=== PATIENT | female | born 1945 | race Caucasian/White ===

== ENCOUNTER → 2017-12-29 | Outpatient (CLI) | payer OTHER ==
[~2017-12-29] MED LIST: ASPIRIN81 M2 PO; CENTRUM SILVER1 EAC4 PO; CHILDREN'S ASPI81 M1 PO; LEVOTHYROXIN0.112 M1 PO; LIPITOR20 MG PO; METOPROLOL SUCC25 M1 PO; MULTI VITAMIN1 EACH PO; SERTRALINE HCL100 MG PO; TOPROL XL25 MG PO; VITAMIN B-12100 MC1 PO; ZOLOFT100 MG PO
== END ==
LOC: M.RAD 14:20
DX: Z12.31 Encounter for screening mammogram for malignant neoplasm of breast (principal); I10 Essential (primary) hypertension; E78.00 Pure hypercholesterolemia, unspecified; E03.9 Hypothyroidism, unspecified

== ENCOUNTER → 2019-10-25 | Outpatient (CLI) | payer MEDICARE ==
--- NOTE | 2019-10-25 13:36 | 2DMMODE ---
[place] [address] 2 D/M-MODE ECHOCARDIOGRAM Name: AUDELIA MANNING Room: [facility]#: [id number] Admission: 10/25/19 Attend Phys: Keren Currie, Discharge: Date of : 43 Date of Service: 10/25/19 1335 Report #: [id number] THIS REPORT FOR: cc: Reji Rucker Russell J. DO Holkins,Justino Moody MD [facility] ~ APPROVED REPORT Study performed: 10/25/2019 08:26:13 EXAM: Comprehensive 2D, Doppler, and color-flow Echocardiogram Patient Location: Out-Patient BSA: 1.69 HR: 64 bpm BP: 128/76 mmHg Other Information Study Quality: Good Indications Murmur 2D Dimensions IVSd: 9.90 (7-11mm) LVOT Diam: 18.20 (18-24mm) LVDd: 41.04 mm PWd: 9.07 (7-11mm) Ascending Ao: 29.14 (22-36mm) LVDs: 21.33 (25-40mm) Aortic Root: 23.15 mm Volumes Left Atrial Volume (Systole) LA ESV Index: 21.00 mL/m2 Aortic Valve AoV Peak Tanner.: 1.25 m/s AO Peak Gr.: 6.28 mmHg LVOT Max P.98 mmHg AO Mean Gr.: 4.34 mmHg LVOT Mean P.82 mmHg LVOT Max V: 1.22 m/s AO V2 VTI: 25.66 cm LVOT Mean V: 0.77 m/s JOE (VTI): 3.33 cm2 LVOT V1 VTI: 32.83 cm Mitral Valve MV Peak Gr.: 5.98 [place] [address] 2 D/M-MODE ECHOCARDIOGRAM Name: AUDELIA MANNING Room: [facility]#: [id number] Admission: 10/25/19 Attend Phys: Keren Currie, Discharge: Date of : 43 Date of Service: 10/25/19 1335 Report #: [id number] MV Mean Gr.: 1.79 mmHg E/A Ratio: 0.74 MV Decel. Time: 275.57 ms MV E Max Tanner.: 0.79 m/s MV PHT: 79.91 ms MVA (PHT): 2.75 cm2 TDI E/Lateral E': 13.17 E/Medial E': 15.80 Medial E' Tanner.: 0.05 m/s Lateral E' Tanner.: 0.06 m/s Pulmonary Valve PV Peak Tanner.: 0.94 m/s PV Peak Gr.: 3.54 mmHg Tricuspid Valve RAP Estimate: 5.00 mmHg TR Peak Gr.: 18.09 mmHg RVSP: 23.09 mmHg PA Pressure: 23.09 mmHg Left Ventricle The left ventricle is normal size. There is normal LV segmental wall motion. There is normal left ventricular wall thickness. Left ventricular systolic function is normal. The left ventricular ejection fraction is within the normal range. LVEF is 60-65%. Grade I - abnormal relaxation pattern. Right Ventricle The right ventricle is normal size. The right ventricular systolic function is normal. Atria Left atrium is mildly dilated. The right atrium size is normal. Aortic Valve Aortic valve is mildly calcified. No aortic regurgitation is present. There is no aortic valvular stenosis. Mitral Valve Moderate mitral annular calcification. Mild mitral regurgitation. No evidence of mitral valve stenosis. Tricuspid Valve The tricuspid valve is normal in structure. [place] [address] 2 D/M-MODE ECHOCARDIOGRAM Name: NIGELAUDELIA Patel Room: [facility]#: [id number] Admission: 10/25/19 Attend Phys: Keren Currie, Discharge: Date of : 43 Date of Service: 10/25/19 1335 Report #: [id number] Pulmonic Valve The pulmonary valve is normal in structure. There is no pulmonic valvular regurgitation. Great Vessels The aortic root is normal in size. IVC is normal in size and collapses >50% with inspiration. Pericardium There is no pericardial effusion. <Conclusion> The left ventricle is normal size. There is normal left ventricular wall thickness. Left ventricular systolic function is normal. The left ventricular ejection fraction is within the normal range. LVEF is 60-65%. Grade I - abnormal relaxation pattern. The right ventricle is normal size. Left atrium is mildly dilated. The right atrium size is normal. Aortic valve is mildly calcified. No aortic regurgitation is present. There is no aortic valvular stenosis. Moderate mitral annular calcification. Mild mitral regurgitation. No evidence of mitral valve stenosis. The tricuspid valve is normal in structure. Mild tricuspid regurgitation. IVC is normal in size and collapses >50% with inspiration. There is no pericardial effusion. There is normal LV segmental wall motion. <ELECTRONICALLY SIGNED> By: Justino Encinas MD, FACC 10/25/19 1335 [id number] [id number] Justino Encinas MD, FACC /INF
== END ==
LOC: M.CRD 08:00
PROVIDERS: ATTEND Nurse Practitioner Family
DX: I08.3 Combined rheumatic disorders of mitral, aortic and tricuspid valves (principal); R01.1 Cardiac murmur, unspecified